=== PATIENT | female | born 1980 | race Native Hawaiian/Other Pacific Islander ===

== ENCOUNTER 2016-12-06 00:40 | Inpatient (IN) | payer OTHER ==
--- NOTE | 2016-12-06 01:19 | History and Physical Report ---
History of Present Illness Date of examination: 12/06/16 Date of admission: 12/06/16 00:53 Chief complaint: Painful contractions History of present illness: 36-year-old 004 at 37+6 weeks presents in active labor, she is a [facility] patient. Care has been unremarkable per patient, he has unknown at this time. 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 denies: chlamydia, gonorrhea, hepatitis B, hepatitis C, HIV, syphilis Social history: , full code. denies: smoking, alcohol abuse, prescription drug abuse, IV drug use - Obstetrical History Expected Date of Delivery: 12/21/16 Actual Gestation: 37 Week(s) 6 Day(s) : 5 Para: 4 Number of Living Children: 4 Medications and Allergies Allergies Allergy/AdvReac Type Severity Reaction Status Date / Time No Known Allergies Allergy Unverified 09/07/13 20:12 Home Medications Medication Instructions Recorded Confirmed Last Taken Type Vits96/Iron Fum/Folic 1 tab PO DAILY 09/07/13 09/07/13 09/07/13 11:00 History [ Tablet] 1 tab Review of Systems Constitutional: no fever, no chills, no chronic pain Cardiovascular: no chest pain, no orthopnea, no syncope, no lightheadedness, no shortness of breath, no dyspnea on exertion, no paroxysmal nocturnal dyspnea, no high blood pressure Respiratory: no cough with sputum, no hemoptysis, no shortness of breath, no dyspnea on exertion Gastrointestinal: abdominal pain, no nausea, no vomiting Genitourinary: leakage of fluid, contractions, no vaginal bleeding, no vaginal discharge - Vital Signs Vital signs: Vital Signs Pulse Pulse Ox 85 99 12/06/16 01:12 12/06/16 01:12 Temp Pulse Resp BP Pulse Ox 84 99 12/06/16 01:17 12/06/16 01:17 - Physical Exam Cardiovascular: Regular rate, Normal S1, Normal S2 Lungs: Positive: Clear to auscultation, Normal air movement Abdomen: Positive: normal appearance, soft. Negative: distention, tenderness, guarding, rigidity Genitourinary (Female): Positive: normal external genitalia Uterus: Positive: enlarged (EFW ~ 3700 ). Negative: tender Adnexa: both: normal Extremities: Positive: normal - Obstetrical FHR: category 1 Cervical Dilatation: 7 station: -2 Results All other labs normal. Assessment and Plan A: 36 y/o at 37+6wks in active labour -Cat 1 tracing P: -Admit -Obtain labs -Declines epidural -Expectant management -Anticipate normal vaginal delivery - Patient Problems (1) 37 weeks gestation of Current Visit: Yes Status: Acute (2) Active labor at term Current Visit: Yes Status: Acute (3) Hx successful (vaginal after ), currently Current Visit: Yes Status: Acute
[2016-12-06] MEDS ORDERED: BRETHINE IVP PRN (01:21)
[2016-12-06] MEDS ORDERED: ZOFRAN IV PRN ×2 (01:21→02:07)
[2016-12-06] MEDS ORDERED: ePHEDrine SULFATE IV PRN (01:21)
[2016-12-06] MEDS ORDERED: XYLOCAINE 2% INFILTRATI ONE (01:21)
[2016-12-06] MEDS ORDERED: MINERAL OIL PO PRN (01:21)
[2016-12-06] MEDS ORDERED: BRETHINE SUB-Q PRN (01:21)
[2016-12-06 01:37] LABS: Hematocrit 35.3 % (30.3-42.9); Hemoglobin 12.1 gm/dl (10.1-14.3); Mean Corpuscular HGB Conc 34 % (30-34); Mean Corpuscular Hemoglobin 30 pg (28-32); Mean Corpuscular Volume 88 fl (79-97); Platelet Count 230 K/mm3 (140-440); Red Blood Count 4.01 M/mm3 (3.65-5.03); Red Cell Distribution Width 14.6 % (13.2-15.2); White Blood Count 7.2 K/mm3 (4.5-11.0)
[2016-12-06] MEDS ORDERED: CYTOTEC ONE (01:54)
[2016-12-06] MEDS ORDERED: LACTATED RINGERS 1,000 ML IV SCH (02:00)
[2016-12-06] MEDS ORDERED: PITOCin/NS 30 UNIT/500ML 30 UNITS/500 ML BAG IV SCH ×2 (02:00)
[2016-12-06] MEDS ORDERED: PITOCin/NS 20 UNIT/1000ML DRIP 20 UNITS/1,000 ML BAG IV SCH ×2 (02:00→03:00)
--- NOTE | 2016-12-06 02:06 | Procedure Note ---
OB Delivery Note - Delivery Date of Delivery: 12/06/16 Surgeon: MELLY DAVIS Estimated blood loss: 300cc - Vaginal Delivery presentation: vertex Delivery position: OA Delivery induction: none Delivery monitor: external FHT, external uterine Route of delivery: Delivery placenta: spontaneous Delivery cord: 3 umbilical vessels Episiotomy: none Delivery laceration: 1st degree Delivery repair: vicryl Anesthesia: none - Infant A at 1 minute: 9 at 5 minutes: 9 Gender: Male (Time of delivery was 01:50, weight was 8#5 or 3759 g )
[2016-12-06] MEDS ORDERED: TUCKS PAD TP PRN (02:07)
[2016-12-06] MEDS ORDERED: TYLENOL PO PRN ×2 (02:07→02:12)
[2016-12-06] MEDS ORDERED: PHENERGAN PR PRN (02:07)
[2016-12-06] MEDS ORDERED: LANSINOH TP PRN (02:07)
[2016-12-06] MEDS ORDERED: DULCOLAX PR PRN (02:07)
[2016-12-06] MEDS ORDERED: BENADRYL PO PRN (02:07)
[2016-12-06] MEDS ORDERED: MILK OF MAGNESIA PO PRN (02:07)
[2016-12-06] MEDS ORDERED: PHENERGAN PO PRN (02:07)
[2016-12-06] MEDS ORDERED: CYTOTEC PR ONE (02:07)
[2016-12-06 02:12] LABS: HIV-1 Antigen p24 Non React (Non React); HIVR-1/2 Ab Non React (Non React)
[2016-12-06] MEDS ORDERED: MOTRIN PO SCH (03:00)
[2016-12-06] MEDS ORDERED: SODIUM CHLORIDE FLUSH SYRINGE 10 ML IV PRN (03:00)
[2016-12-06] MEDS: NORCO 5/325 PO PRN ×2 (08:41→18:22)
[2016-12-06] MEDS: PRENATAL VITAMIN PO SCH (10:06)
[2016-12-06] MEDS: COLACE PO SCH ×2 (10:06→21:35)
[2016-12-06] MEDS: FEOSOL PO SCH ×2 (10:06→21:35)
[2016-12-06] MEDS: MOTRIN PO SCH ×3 (12:14→23:21)
[2016-12-06 14:26] LABS: Hematocrit 33.9 % (30.3-42.9); Hemoglobin 11.5 gm/dl (10.1-14.3)
[2016-12-06] MEDS: SENOKOT S PO SCH (19:33)
[2016-12-07] MEDS ORDERED: M-M-R II VACCINE SUB-Q ONE (02:07)
[2016-12-07] MEDS: MOTRIN PO SCH ×4 (05:55→23:57)
[2016-12-07] MEDS ORDERED: BOOSTRIX IM ONE (06:00)
--- NOTE | 2016-12-07 08:55 | Progress Note ---
Assessment and Plan PPD# 1 s/p -Doing well P: -Continue routine care -Patient desires Depo-Provera -Anticipate discharge in 24-48 hours - Patient Problems (1) (normal spontaneous vaginal delivery) Current Visit: Yes Status: Acute (2) 37 weeks gestation of Current Visit: Yes Status: Acute (3) Active labor at term Current Visit: Yes Status: Acute (4) Hx successful (vaginal after ), currently Current Visit: Yes Status: Acute Subjective - Subjective Date of service: 12/07/16 Principal diagnosis: PPD# 1 Interval history: Patient seen and examined, stable doing well. No shortness of breath or chest pain, no fever or chills adequate bowel and bladder function pain well controlled Patient reports: appetite normal, voiding normally, pain well controlled, flatus , ambulating normally, no dizzy ambulation, no nauseated [place]: doing well Objective - Vital Signs Latest vital signs: Vital Signs Temp Pulse Resp BP BP Pulse Ox 12/07/16 00:00 98.9 F 68 18 116/63 12/06/16 16:31 81 99 12/06/16 16:30 98.0 F 78 20 109/66 96 12/06/16 11:33 74 98 12/06/16 11:32 98.1 F 75 20 119/95 96 Intake and Output 12/06/16 12/07/16 12/07/16 23:59 07:59 15:59 Intake Total 240 240 Output Total 900 Balance -660 240 Intake: Oral 240 240 Output: Urine 900 Void 900 Other: Total, Intake Amount 240 240 Total, Output Amount 900 # Voids Void 1 1 - Exam Abdomen: Present: normal appearance, soft. Absent: distention, tenderness, guarding, rigidity Uterus: Present: firm, fundal height below umbilicus Extremities: Present: normal
--- NOTE | 2016-12-07 08:56 | Discharge Summary ---
Providers - Providers Date of Admission: 12/06/16 00:53 Date of discharge: 12/08/16 Attending physician: MELLY DAVIS Primary care physician: MELLY DAVIS Hospitalization Reason for admission: active labor, IUP at term Delivery: Episiotomy: none Laceration: 1st degree Incision: dry, intact Other procedures: none complications: none Discharge diagnosis: IUP at term delivered baby: male Hospital course: Uncomplicated course Condition at discharge: Good Disposition: DC-01 TO HOME OR SELFCARE - Discharge Diagnoses (1) (normal spontaneous vaginal delivery) Status: Acute (2) 37 weeks gestation of Status: Acute (3) Active labor at term Status: Acute (4) Hx successful (vaginal after ), currently Status: Acute Plan - Discharge Medications Prescriptions: HYDROcodone/ACETAMINOPHEN [[place] 5-325 Tablet] 1 each PO DAILY #30 tablet Ibuprofen [Motrin 600 MG tab] 600 mg PO Q8H PRN #30 tablet PRN Reason: Pain Multivitamin with Iron [Multivitamins with Iron] 1 each PO DAILY #30 tablet - Provider Discharge Summary Activity: no sex for 6 weeks, no heavy lifting 4 weeks, no strenuous exercise Diet: routine Additional instructions: [] Smoking cessation referral if applicable(refer to patient education folder for contact #) [] Refer to [facility] Booklet Call your doctor immediately for: * Fever > 100.5 * Heavy vaginal bleeding ( >1 pad per hour) * Severe persistent headache * Shortness of breath * Reddened, hot, painful area to leg or breast * Drainage or odor from incision. * Keep incision clean and dry at all times and follow doctor's instructions regarding bathing/showering - Follow up plan Follow up: MELLY DAVIS MD [Primary Care Provider] - 6 Weeks
[2016-12-07] MEDS ORDERED: DEPO-PROVERA (CONTRACEPTION) IM ONE (10:00)
[2016-12-07] MEDS: SENOKOT S PO SCH ×2 (10:23→22:12)
[2016-12-07] MEDS: PRENATAL VITAMIN PO SCH (10:23)
[2016-12-07] MEDS: COLACE PO SCH ×2 (10:23→22:05)
[2016-12-07] MEDS: FEOSOL PO SCH ×2 (10:39→22:05)
[2016-12-08] MEDS: MOTRIN PO SCH ×2 (05:23→12:14)
[2016-12-08] MEDS ORDERED: DEPO-PROVERA (CONTRACEPTION) IM NR (08:00)
[2016-12-08] MEDS: FEOSOL PO SCH (08:50)
[2016-12-08] MEDS: COLACE PO SCH (08:53)
[2016-12-08] MEDS: PRENATAL VITAMIN PO SCH (08:53)
[2016-12-08] MEDS ORDERED: Fluarix Quad 2017-2018(36 MOS+) IM ONE (13:00)
[2016-12-08 18:08] VITALS: BP 110/70
== END 2016-12-08 03:00 | disposition home or self-care (01) | DRG 775 ==
LOC: TRG 00:40 → LD 00:53 → OB 04:40
PROVIDERS: ADMIT Obstetrics & Gynecology Gynecology; ATTEND Obstetrics & Gynecology Gynecology
PROC: 10E0XZZ Delivery of Products of Conception, External Approach (ICD-10-PCS; principal; 2016-12-06)
PROC: 0HQ9XZZ Repair Perineum Skin, External Approach (ICD-10-PCS; 2016-12-06)
DX: O70.0 First degree perineal laceration during delivery (principal); Z3A.37 37 weeks gestation of pregnancy; Z37.0 Single live birth
CPT/HCPCS: 36415; 85014; 85018; 85027; 86592; 86762; 86850; 86900; 86901; 87806; 90686; 99211; G0463; J1050; J2590